=== PATIENT | male | born 1970 | race Caucasian/White ===

== ENCOUNTER → 2016-10-06 | Outpatient (CLI) | payer BC | LOC: EXRD 10:16 | DX: R20.2 Paresthesia of skin (principal); M47.816 Spondylosis without myelopathy or radiculopathy, lumbar region; Z98.1 Arthrodesis status | CPT/HCPCS: 72050 ==

== ENCOUNTER → 2016-10-27 | Outpatient (CLI) | payer BC | LOC: EMI 08:57 | DX: M54.12 Radiculopathy, cervical region (principal); M50.320 Other cervical disc degeneration, mid-cervical region, unspecified level; M48.07 Spinal stenosis, lumbosacral region | CPT/HCPCS: 72156; 72157; 72158; A9577; J7050 ==